=== PATIENT | male | born 1965 | race Caucasian/White ===

== ENCOUNTER 2021-11-15 14:45 | Emergency (ER) | payer BC, MEDICARE ==
[2021-11-15] MEDS ORDERED: LIDOCAINE 1% MPF 5 ML VIAL ONE (15:04)
[2021-11-15] MEDS ORDERED: TETANUS & DIPHTHERIA TOX,ADULT 0.5 ML VIAL ONE (15:31)
--- NOTE | 2021-11-15 15:41 | EDPHYS ---
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 The injury was accidental. The laceration(s) is(are) located on the dorsal aspect of left forearm. Onset: The symptoms/episode began/occurred just prior to arrival. Associated signs and symptoms: The patient has no apparent associated signs or symptoms. The patient has not experienced similar symptoms in the past. The patient has not recently seen a physician. Historical: - Allergies: 14:54 No Known Allergies; [facility] - Home Meds: 14:54 losartan oral [Active]; [facility] - PMHx: 14:54 Diabetes mellitus; [facility] - Immunization history:: Client reports receiving the 2nd dose of the Covid vaccine, Last tetanus immunization: unknown. - Social history:: Smoking status: unknown. ROS: 15:39 Constitutional: Negative for fever, chills, and weight loss. kb 15:39 Skin: Positive for laceration(s), of the dorsal aspect of left forearm. 15:39 All other systems are negative. Exam: 15:39 Constitutional: This is a well developed, well nourished patient who is awake, alert, kb and in no acute distress. Head/Face: Normocephalic, atraumatic. ENT: Moist Mucous membranes Respiratory: Respirations even and unlabored. No increased work of breathing. Talking in full sentences MS/ Extremity: Pulses equal, no cyanosis. Neurovascular intact. Full, normal range of motion. Neuro: Awake and alert, GCS 15, oriented to person, place, time, and situation. Moves all extremities. Normal gait. Psych: Awake, alert, with orientation to person, place and time. Behavior, mood, and affect are within normal limits. 15:39 Skin: injury, laceration(s), the wound is approximately 2.5 cm(s), of the dorsal aspect of left forearm, that can be described as clean, no foreign body, linear, without bleeding. Vital Signs: 14:53 BP 142 / 86; Pulse 99; Resp 18; Temp 98.3(O); Pulse Ox 96% on R/A; ic1 15:50 BP 138 / 82; Pulse 83; Resp 17; Pulse Ox 98% ; jh6 Laceration: 15:39 Wound Repair of 2.5cm ( 1.0in ) subcutaneous laceration to dorsal aspect of left kb forearm. Linear shaped.. Distal neuro/vascular/tendon intact. Anesthesia: Wound infiltrated with 3 mls of 1% lidocaine. Wound prep: Extensive cleansing with betadine by me, Wound irrigation with saline by me. Skin closed with 4 4-0 Prolene using simple sutures and sterile technique. Patient tolerated well. MDM: 14:57 Patient medically screened. kb 15:39 Data reviewed: vital signs, nurses notes. Data interpreted: Pulse oximetry: on room air kb is 96 %. Interpretation: normal. Counseling: I had a detailed discussion with the patient and/or guardian regarding: the historical points, exam findings, and any diagnostic results supporting the discharge/admit diagnosis, the need for outpatient follow up, a family practitioner, to return to the emergency department if symptoms worsen or persist or if there are any questions or concerns that arise at home. 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 Exp: jh6 01/30/2023. Lot #: [id number]. } Route: IM; Site: right deltoid; Disposition: 18:52 Co-signature as Attending Physician, Bud Hopkins MD I agree with the assessment and rn plan of care. Attestation: The patient's history, exam findings, diagnostics, and a summary of any interventions or procedures was reviewed in detail with Carlee ESPARZA. Disposition Summary: 11/15/21 15:41 Discharge Ordered Location: Home kb Condition: Stable kb Diagnosis - Laceration without foreign body of left forearm kb Followup: kb - With: Emergency Department - When: As needed - Reason: Worsening of condition Followup: kb - With: Private Physician - When: 2 - 3 days - Reason: Recheck today's complaints, Continuance of care, Re-evaluation by your physician Discharge Instructions: - Discharge Summary Sheet kb - Laceration Care, Adult, [id number] kb Forms: - Medication Reconciliation Form kb - Thank You Letter kb - Antibiotic Education kb - Prescription Opioid Use kb Signatures: Carlee Rapp, DALEC RACHELLE-Bud Ramírez MD MD rn Marlene Oseguera RN RN jh6
--- NOTE | 2021-11-15 15:41 | ER ---
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 Coronavirus screen: Client denies travel out of the [place] in the last 14 days. Ebola Screen: Patient denies exposure to infectious person. Patient denies travel to an Ebola-affected area in the 21 days before illness onset. Complicating Factors: There are no complicating factors for this patient. Initial Sepsis Screen: Does the patient meet any 2 criteria? No. Patient's initial sepsis screen is negative. Does the patient have a suspected source of infection? No. Patient's initial sepsis screen is negative. Risk Assessment: Do you want to hurt yourself or someone else? Patient reports no desire to harm self or others. Onset of symptoms was November 15, 2021. 14:52 Method Of Arrival: Ambulatory [facility] 14:52 Method Of Arrival: Ambulatory [facility] 14:52 Acuity: FARAZ 4 [facility] 14:53 Chief complaint:. ic1 Historical: - Allergies: 14:54 No Known Allergies; [facility] - Home Meds: 14:54 losartan oral [Active]; [facility] - PMHx: 14:54 Diabetes mellitus; [facility] - Immunization history:: Client reports receiving the 2nd dose of the Covid vaccine, Last tetanus immunization: unknown. - Social history:: Smoking status: unknown. Screenin:57 Abuse screen: Denies threats or abuse. Nutritional screening: No deficits noted. [facility] Tuberculosis screening: No symptoms or risk factors identified. Fall Risk None identified. Assessment: 14:56 General: Appears in no apparent distress. Behavior is calm, cooperative. Pain: [facility] Complains of pain in dorsal aspect of left forearm Pain currently is 4 out of 10 on a pain scale. Quality of pain is described as burning, Pain began suddenly, Is continuous. Musculoskeletal: Circulation, motion, and sensation intact. Range of motion: intact in all extremities. Injury Description: Laceration is clean, superficial, 0.5 to 2.5 cm long, not bleeding. 15:50 Reassessment: Patient and/or family updated on plan of care and expected duration. Pain jh6 level reassessed. wound cleaned and sutures placed without issue. verbal understanding of d/c instructions and follow up care. Patient states feeling better. Vital Signs: 14:53 BP 142 / 86; Pulse 99; Resp 18; Temp 98.3(O); Pulse Ox 96% on R/A; ic1 15:50 BP 138 / 82; Pulse 83; Resp 17; Pulse Ox 98% ; jh6 ED Course: 14:45 Patient arrived in ED. am2 14:52 Marlene Oseguera, RN is Primary Nurse. 6 14:54 Triage completed. 6 14:55 Arm band placed on right wrist. Patient placed in an exam room, on a stretcher, wound jh6 evaluated and wrapped waiting for md evaluation. 14:57 Carlee Rapp FNP-C is [facility]. kb 14:57 Bud Hopkins MD is Attending Physician. kb 14:57 Bed in low position. Call light in reach. Side rails up X 1. Adult w/ patient. jh6 15:40 Assist provider with laceration repair on dorsal aspect of left forearm that was 2.5 jh6 cm. or less. 15:49 Dressings: Band aid x 1 dorsal aspect of left forearm. 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 Exp: jh6 01/30/2023. Lot #: [id number]. } Route: IM; Site: right deltoid; Outcome: 15:41 Discharge ordered by MD. kb 15:51 Discharged to home ambulatory. 6 15:51 Condition: improved 15:51 Discharge instructions given to patient, family, Instructed on discharge instructions, follow up and referral plans. Demonstrated understanding of instructions, follow-up care, wound care. 15:52 Patient left the ED. [facility] Signatures: Carlee Rapp FNP-C [employer]UILL CLE[employer]ER-Sindhu Dickens am2 Marlene Oseguera, SHERRON [facility]U [facility] Creggett, Juliet, RN RN ic1
[2021-11-15 15:57] VITALS: TEMP 98.3
[2021-11-15 15:58] VITALS: BP 138/82; O2SAT 98
== END 2021-11-15 15:52 | disposition home or self-care (01) ==
LOC: ER 14:45
PROC: 0JQH0ZZ Repair Left Lower Arm Subcutaneous Tissue and Fascia, Open Approach (ICD-10-PCS; principal; 2021-11-15)
DX: S51.812A Laceration without foreign body of left forearm, initial encounter (principal); W27.8XXA Contact with other nonpowered hand tool, initial encounter; Z23 Encounter for immunization; E11.9 Type 2 diabetes mellitus without complications
CPT/HCPCS: 90471; 90714; 99283